=== PATIENT | male | born 1995 | race Caucasian/White ===

== ENCOUNTER 2017-03-26 03:44 | Emergency (ER) | payer OTHER ==
[~2017-03-26] VITALS: Ht 180.3 cm; Wt 90.9 kg
[2017-03-26] MEDS ORDERED: DOXY-278 PO (03:55)
[2017-03-26] MEDS ORDERED: KETOROLAC 60 MG/2 ML VIAL (J1885) IM ONE (07:45)
--- NOTE | 2017-03-26 08:04 | REP ---
Clinical: Chest pain . Comparison: None . Technique: PA and lateral. Findings: The mediastinum and cardiac silhouette are normal. The lung qureshi are clear and without acute consolidation, effusion, or pneumothorax. The skeletal structures are intact and normal. Impression: 1. No acute cardiopulmonary process. Signed by Graham Rodrigues MD 03/26/2017 07:55 A
[2017-03-26] MEDS ORDERED: NAPR500T PO (08:06)
[2017-03-26 08:20] VITALS: BP 151/74
--- NOTE | 2017-03-28 08:55 | ECGEPIP ---
Stationary ECG Study [facility] - ED Test Date: 2017-03-26 Pat Name: JAYE MCPHERSON Department: Room: - Gender: M Consulting Manager: rn : 1995 Requested By: NEGRO ALDRIDGE Order Number: [id number] Reading MD: Trisha Ovalles Measurements Intervals [place] Rate: 55 P: 76 [place]: 163 QRS: 74 QRSD: 104 T: 34 QT: 411 QTc: 393 Interpretive Statements SINUS BRADYCARDIA NO PRIOR FOR COMPARISON Electronically Signed On 03-28-2017 8:55:04 EDT by Trisha Ovalles
== END 2017-03-26 08:24 | disposition home or self-care (01) ==
LOC: M ED 03:44
DX: R07.89 Other chest pain (principal); R00.1 Bradycardia, unspecified

== ENCOUNTER → 2017-05-07 | Outpatient (CLI) | payer OTHER ==
[~2017-05-07] MED LIST: DOXY-278 PO; METHACHOLINE KIT (J7674) INH ONE; NAPR500T PO
--- NOTE | 2017-05-07 16:41 | PFTRPT ---
Tech: Linh WALKER RRT Age: 22 Sex: Male Race: Height: 69.00 Inches Weight: 204.00 Lbs BSA: 2.08 Diagnosis: R06.02 METHACHOLINE CHALLENGE REPORT: ORDERING PROVIDER: REY Wilson DATE OF SERVICE: 05/07/17 INTERPRETATION: The study was of excellent technical quality. Under protocol, methacholine was administered. At a dose of 10 mg (63.875 CDUs), a 40% decline in the FEV1 was noted. The PC20 of 3.85 is significant. Flow rates returned to baseline post bronchodilator administration. IMPRESSION: Positive methacholine challenge study. MTDD
== END ==
LOC: M CARPUL 12:45
PROVIDERS: ATTEND Nurse Practitioner Adult Health
DX: R06.02 Shortness of breath (principal)
CPT/HCPCS: 94070; J7674